=== PATIENT | male | born 1995 | race African-American/Black ===

== ENCOUNTER 2024-10-22 11:42 | Emergency (ER) | payer OTHER, SELFPAY ==
--- NOTE | ~2024-10-22 | CT_ITS ---
EXAMINATION: CT chest abdomen pelvis w con DATE: 10/22/2024 13:53 INDICATION: Left-sided chest pain and left upper quadrant lateral abdominal pain. TECHNIQUE: Computed tomography (CT) of the chest, abdomen, and pelvis was performed with 100 mL Omnip aque-350 intravenous contrast. Automated exposure control and iterative reconstruction technique were employed. The dose-length product was 1650.35 mGy-cm. COMPARISON: None FINDINGS: CHEST CT: Lungs are clear with no pneumonia, pulmonary edema, pulmonary nodules or pleural effusion. No pulmona ry emboli. Heart size is normal. No pericardial effusion. Thoracic aorta is normal in caliber with no dissection. No pathologically enlarged thoracic lymphadenopathy. Bilateral gynecomastia. Mild thorac ic spondylosis. ABDOMEN/PELVIS CT: Diffuse hepatic steatosis. Liver, gallbladder, spleen, pancreas, bilateral adrenal glands and kidneys are normal. Bowels including the appendix are normal. Bladder is normal. No free intraperitoneal gas or fluid. No pathologically enlarged abdominal or pelvic lymphadenopathy. Mild lumbar dextrocurvatur e with mild spondylosis. IMPRESSION: 1. No acute cardiopulmonary disease or acute intra-abdominal/pelvic process. Reviewed, dictated and finalized at location A.
--- NOTE | ~2024-10-22 | XR_ITS ---
EXAM/PROCEDURE: XR chest 2V - 10/22/2024 13:00 CDT HISTORY: 29 years old Male with L lower chest/lower rib pain?, PAIN MORE TOWARDS LT SIDE TECHNIQUE: Two view(s) of the chest. COMPARISON: None available. FINDINGS: LUNGS/ PLEURA: No focal consolidation. No appreciable pneumothorax or large pleural effusion. HEART/ MEDIASTINUM: Heart appears normal in size. BONES: No acute osseous abnormality. OTHER: Visualized upper abdomen is unremarkable. IMPRESSION: No acute process. Reviewed, dictated and finalized at location A. IMPRESSION: No acute process.
[2024-10-22 12:07] VITALS: BP 160/110; PULSE 93; RESP 20; TEMP 36.6; O2SAT 94
--- NOTE | 2024-10-22 12:28 | ED_ITS ---
HPI - General Adult General Chief complaint: Unspecified Stated complaint: L rib pain? pt thinks kidney stone Time Seen by Provider: 10/22/24 12:25 Source: patient and other Mode of arrival: ambulatory Limitations: no limitations History of Present Illness HPI narrative: Patient presents with report of left rib pain verses left upper quadrant pain. He thinks it might be a kidney stone although he has never had 1 before. He had a bowel movement while waiting in the waiting room but denies any constipation, diarrhea, or bleeding. He denies any trauma, fevers, chills, flank pain, nausea, vomiting. This has never happened before. Does not see a urologist. He particularly experiences this pain when he tries to urinate or defecate. He denies any dysuria, urgency, frequency, or hematuria. He notes that he does feel short of breath in the middle the night with sleeping in which he will feel like he is suffocating. He states he is unable to cough due to the pain. His pain started last night he describes it as sharp, otherwise nonradiating, 8/10 severity. He is unsure if he has hypertension. Related Data Allergies Allergy/AdvReac Type Severity Reaction Status Date / Time No Known Allergies Allergy Verified 10/22/24 12:12 Exam 2 Narrative: GENERAL: Well-appearing, well-nourished, in moderate acute distress. HEAD: Normocephalic, atraumatic. EYES: Non injected, non icteric ENT: Nares clear, no rhinorrhea or epistaxis. Gross auditory acuity intact. NECK: Supple. No meningismus. CHEST: Speaking in full sentences. No respiratory distress. No TTP lower ribs. HEART: Regular rate and rhythm. ABDOMEN: Obese. Soft, nondistended. No rigidity or guarding. Not peritoneal but localized TTP at left lateral/LUQ. EXTREMITIES: Normal range of motion. SKIN: Warm, dry, no rash. NEURO: No focal deficits. Alert and oriented. Answering questions. Following commands. Normal speech without aphasia or dysarthria. PSYCH: Normal mood and affect. Course Vital Signs Vital signs: Vital Signs Temperature 97.9 F 10/22/24 12:07 Pulse Rate 93 10/22/24 12:07 Respiratory Rate 20 10/22/24 12:07 Blood Pressure 160/110 H 10/22/24 12:07 Pulse Oximetry 94 10/22/24 12:07 Oxygen Delivery Room Air 10/22/24 12:07 Temperature 97.9 F 10/22/24 12:07 Pulse Rate 64 10/22/24 15:21 Respiratory Rate 18 10/22/24 15:21 Blood Pressure 158/111 H 10/22/24 15:21 Pulse Oximetry 98 10/22/24 15:21 Oxygen Delivery Room Air 10/22/24 12:07 Medical Decision Making MDM Narrative Medical decision making narrative: Patient presents with was initially reported as left rib pain although appears to be LUQ/left lateral abdominal pain. In the emergency department he is afebrile with vital signs notable for hypertension. He also has borderline hypoxia. CBC generally unremarkable. Dilaudid ordered for pain. Patient begins vomiting shortly thereafter. Ondansetron ordered. AST mildly elevated, no prior for comparison. Scant pyuria on urinalysis as well as chin leukocyte esterase but otherwise without hematuria or bacteriuria. Patient reporting pain to the nurse again. His CT has been obtained but not yet interpreted. Additional dilaudid ordered. CT unremarkable as below. In sum, This patient presents with abdominal pain or unclear etiology. A CT scan was performed to evaluate for potential causes of the abdominal pain, however, neither the clinical exam nor the CT has identified an emergent etiology for the abdominal pain. Specifically, given the benign exam, the laboratory studies, and unremarkable CT, I have a very low suspicion for appendicitis, ischemic bowel, bowel perforation, or any other life threatening disease. Advised follow up with PCP (provided name/referral). Given Rx for [id number] analgesics as well as Bentyl. Advised he Return to the Emergency Department immediately if the pain worsens, develops fever, persistent and uncontrolled vomiting, or for any new symptoms or concerns. Otherwise stable for discharge. Differential Diagnosis Differential Diagnosis: Kidney stone, constipation, diverticulitis, lobar pneumonia, acute heart failure, splenic injury ; PE possible lung infarct Vital Signs Vital Signs: Vital Signs Temperature 97.9 F 10/22/24 12:07 Pulse Rate 93 10/22/24 12:07 Respiratory Rate 20 10/22/24 12:07 Blood Pressure 160/110 H 10/22/24 12:07 Pulse Oximetry 94 10/22/24 12:07 Oxygen Delivery Room Air 10/22/24 12:07 Temperature 97.9 F 10/22/24 12:07 Pulse Rate 64 10/22/24 15:21 Respiratory Rate 18 10/22/24 15:21 Blood Pressure 158/111 H 10/22/24 15:21 Pulse Oximetry 98 10/22/24 15:21 Oxygen Delivery Room Air 10/22/24 12:07 Lab Data Lab results reviewed: Yes I reviewed the patient's lab results. Lab results narrative: No leukocytosis. Normal renal function. 10/22/24 12:23 10/22/24 12:23 Labs: Lab Results 10/22/24 10/22/24 Range/Units 12:22 12:23 WBC 7.5 (4.5-10.0) K/mm3 RBC 4.57 L (4.6-6.20) M/mm3 Hgb 14.5 (14.0-18.0) g/dL Hct 44.1 (42.0-52.0) % MCV 96.5 (80-100) fl MCH 31.7 (26-34) pg MCHC 32.9 (32-36) g/dl RDW 12.1 (11.5-14.5) % Plt Count 314 (150-375) k/mm3 MPV 9.6 (7.4-10.4) fl Immature Gran % (Auto) 0.4 (0-0.5) % Neut % (Auto) 55.3 (45.5-73.1) % Lymph % (Auto) 23.6 (18.3-44.2) % [facility] % (Auto) 11.6 H (2.6-8.5) % Eos % (Auto) 8.7 H (0-4.4) % Baso % (Auto) 0.4 (0.2-1.2) % Lymph # (Auto) 1.77 (0.9-3.2) K/mm3 [facility] # (Auto) 0.9 H (0.1-0.6) K/mm3 Eos # (Auto) 0.7 H (0-0.3) K/mm3 Baso # (Auto) 0.0 (0.0-0.1) K/mm3 Abs Immat Gran (auto) 0.03 (0.00-0.031) K/mm3 Absolute Neuts (auto) 4.2 (1.3-6.7) K/mm3 Absolute Nucleated RBC 0.000 (0.0-0.012) K/mm3 Nucleated RBC % 0.0 (0.0-0.2) % D-Dimer 0.30 (<0.48) ug/mL Sodium 138 (137-145) mmol/L Potassium 4.0 (3.4-5.0) mmol/L Chloride 103 (98-107) mmol/L Carbon Dioxide 27 (22-30) mmol/L Anion Gap 8 (4-12) mmol/L BUN 13 (9-20) mg/dL Creatinine 1.20 (0.7-1.3) mg/dL Estim Creat Clear Calc 93 ml/min Estimated GFR > 60 (59 - ) Glucose 103 (65-110) mg/dL Calcium 9.0 (8.4-10.2) mg/dL Total Bilirubin 1.1 (0.2-1.3) mg/dL AST 63 H (17-59) U/L ALT 46 (6-50) U/L Alkaline Phosphatase 74 (38-126) U/L NT-Pro-B Natriuret Pep 39 (19.9-100) pg/mL Total Protein 7.7 (6.3-8.2) g/dL Albumin 4.3 (3.5-5.1) g/dL Lipase 116 (23-300) U/L Urine Color Yellow (Yellow) Urine Appearance Clear (Clear) Urine pH 7.0 (5.0-9.0) Ur Specific Farrell 1.018 (1.001-1.035) Urine Protein Negative (Negative) mg/dL Urine Glucose (UA) Negative (Negative) mg/dL Urine Ketones Negative (Negative) mg/dL Ur Blood (Man) Negative (Negative) Urine Nitrate Negative (Negative) Urine Bilirubin Negative (Negative) Urine Urobilinogen 1.0 (<2.0) mg/dL Leukocyte Esterase Rfl 1+ H (Negative) BRITTANI/UL Urine RBC 0-2 (0-2) /hpf Urine WBC 11-20 H (0-3) /hpf Ur Squamous Epith Cells None seen (Few) /hpf Urine Bacteria None seen /hpf Urine Casts 0-2 Imaging Data Radiologist's impression: Impressions Chest X-Ray 10/22/24 13:08 IMPRESSION: No acute process. Chest/Abdomen/Pelvis CT 10/22/24 14:14 IMPRESSION: 1. No acute cardiopulmonary disease or acute intra-abdominal/pelvic process. ECG Data EKG #1: Attestation: I personally reviewed and interpreted this ECG as follows: ECG completion date: 10/22/24 ECG completion time: 14:02 Interpretation: Normal sinus rhythm at a rate of 60 beats per minute. There is some R to R variation consistent with sinus arrhythmia likely due to respiratory variation. Otherwise benign. ID interval 158. QRS 90. QT/QTC 406/424. Good R-wave progression across the precordial leads. No T-wave inversions. Normal axis. Discharge Plan Discharge Clinical Impression: Elevated AST (SGOT), Left-sided abdominal pain of unknown etiology Patient Disposition: Home Condition: Stable Instructions: Acute Abdominal Pain (ED) Additional Instructions: Your work up did not reveal a cause of your symptoms. Follow-up with your primary care physician. If you do not have 1 the name of the doctors listed below. Return to the Emergency Department immediately if the pain worsens, develops fever, persistent and uncontrolled vomiting, or for any new symptoms or concerns. Acetaminophen/Tylenol (maximum 4000 mg per day) is safe to take with NSAIDs (ibuprofen/Motrin) for pain relief. You can also add dicyclomine/Bentyl which works on the smooth muscle of the GI tract. Patient Language: Bhutanese Prescriptions: New ibuprofen 600 mg tablet 600 mg PO TID PRN (Reason: pain) Qty: 30 0RF acetaminophen 500 mg capsule 1,000 mg PO Q6H PRN (Reason: pain) Qty: 30 0RF dicyclomine 20 mg tablet 20 mg PO BID Qty: 20 0RF Follow-up/Referrals: Zackary Clayton MD [Physician] - PHYSICIAN,COMMUNITY SERVICE MANAGER [Non-Staff] - Stand Alone Forms: Work/School Release IP Time of Disposition: 14:49
[2024-10-22] MEDS: HYDROmorphone HCL INJ (*CRX) 2 MG/ML VIAL 1 MG IV PUSH ×2 (12:31→14:04)
[2024-10-22 12:32] LABS: Basophils Percent Auto 0.4 % (0.2-1.2); Eosinophils Absolute Auto 0.7 K/mm3 (0-0.3); Eosinophils Percent Auto 8.7 % (0-4.4); Hematocrit 44.1 % (42.0-52.0); Hemoglobin 14.5 g/dL (14.0-18.0); Immature Granulocyte Absolute 0.03 K/mm3 (0.00-0.031); Immature Granulocyte Percent A 0.4 % (0-0.5); Lymphocytes Absolute Auto 1.77 K/mm3 (0.9-3.2); Lymphocytes Percent Auto 23.6 % (18.3-44.2); Mean Corpuscular HGB Conc 32.9 g/dl (32-36); Mean Corpuscular Hemoglobin 31.7 pg (26-34); Mean Corpuscular Volume 96.5 fl (80-100); Mean Platelet Volume 9.6 fl (7.4-10.4); Monocytes Absolute Auto 0.9 K/mm3 (0.1-0.6); Monocytes Percent Auto 11.6 % (2.6-8.5); Neutrophils Absolute Auto 4.2 K/mm3 (1.3-6.7); Neutrophils Percent Auto 55.3 % (45.5-73.1); Platelet Count Result 314 k/mm3 (150-375); Red Blood Count 4.57 M/mm3 (4.6-6.20); Red Cell Distribution Width 12.1 % (11.5-14.5); White Blood Count 7.5 K/mm3 (4.5-10.0)
[2024-10-22 12:39] LABS: Add Urine Microscopic? YES; Appearance Urine Clear (Clear); Bacteria Urine None Seen /hpf; Bilirubin Urine Negative (Negative); Blood Urine Negative (Negative); Color Urine Yellow (Yellow); Glucose Urine UA Negative (Negative); Ketones Urine Negative (Negative); Leukocyte Esterase Ur 1+ LEU/UL (Negative); Nitrate Urine Negative (Negative); Non Pathogenic Casts 0-2; Protein Urine Negative (Negative); RBC Urine 0-2 /hpf (0-2); Specific Grav Ur 1.018 (1.001-1.035); Squamous Epithelial Cell Urine None Seen /hpf (Few)
--- NOTE | 2024-10-22 12:40 | PC.NURSE ---
lab called to add on BNP and D Dimer.
[2024-10-22] MEDS: ONDANSETRON INJ 4 MG/2 ML VIAL IV PUSH (12:41)
[2024-10-22 12:42] LABS: Alanine Aminotransferase 46 U/L (6-50); Albumin Level 4.3 g/dL (3.5-5.1); Alkaline Phosphatase 74 U/L (38-126); Anion Gap 8 mmol/L (4-12); Aspartate Amino Transferase 63 U/L (17-59); Bilirubin,Total 1.1 mg/dL (0.2-1.3); Blood Urea Nitrogen 13 mg/dL (9-20); Carbon Dioxide 27 mmol/L (22-30); Chloride 103 mmol/L (98-107); Estimated CRCL calculation 93 ml/min; Estimated Glomerular Filt Rate > 60; Glucose 103 mg/dL (65-110); Sodium 138 mmol/L (137-145); Total Protein 7.7 g/dL (6.3-8.2)
--- NOTE | 2024-10-22 12:58 | ECG_ITS ---
Test Date: 2024-10-22 14:02:30 Measurements Intervals Lindsay Rate: 68 P: 39 SD: 158 QRS: 30 QRSD: 90 T: 34 QT: 406 QTc: 434 Interpretive Statements SINUS RHYTHM WITH SINUS ARRHYTHMIA NORMAL ECG No previous ECG available for comparison Electronically Signed On 10-22-2024 14:15:43 CDT by Jb Luis D.O.
--- NOTE | 2024-10-22 13:12 | PC.NURSE ---
lab called to add on LIPASE
[2024-10-22 13:14] LABS: NT Pro B Type Natriuretic Pept 39 pg/mL (19.9-100)
[2024-10-22 13:40] LABS: Lipase 116 U/L (23-300)
[2024-10-22] MEDS: ACETAMINOPHEN 500 MG TABLET 1000 MG PO (15:17)
[2024-10-22] MEDS: KETOROLAC 30 MG/ML VIAL (*BKC) IV PUSH (15:17)
[2024-10-22] MEDS: DICYCLOMINE HCL 10 MG CAPSULE 20 MG PO (15:17)
[2024-10-22 15:21] VITALS: BP 158/111; PULSE 64; RESP 18; O2SAT 98
== END 2024-10-22 15:28 | disposition home or self-care (01) ==
PROVIDERS: Emergency Medicine; Emergency Provider Student in an Organized Health Care Education/Training Program
DX: R10.12 Left upper quadrant pain (principal); R74.01 Elevation of levels of liver transaminase levels
CPT/HCPCS: 36415; 71046; 71260; 74177; 80053; 81001; 83690; 83880; 85025; 85380; 87086; 93005; 99283; 99284; A9270; J1171; J1885; J2405; Q9967